=== PATIENT | male | born 1945 | race Caucasian/White ===

== ENCOUNTER 2017-12-25 06:00 | Day surgery (SDC) | payer OTHER | END 2017-12-25 10:00 | disposition home or self-care (01) | LOC: AMB-ENDOS 06:00 | DX: D12.0 Benign neoplasm of cecum (principal); D12.3 Benign neoplasm of transverse colon; D12.5 Benign neoplasm of sigmoid colon; K64.8 Other hemorrhoids; K57.30 Diverticulosis of large intestine without perforation or abscess without bleeding; Z12.11 Encounter for screening for malignant neoplasm of colon ==

== ENCOUNTER 2020-03-24 14:49 | Outpatient (CLI) | payer OTHER | END 2020-03-24 14:52 | disposition HB | LOC: RAD 14:49 | PROVIDERS: ATTEND Family Medicine | DX: R07.89 Other chest pain (principal) ==

== ENCOUNTER 2020-03-30 14:07 | Outpatient (CLI) | payer OTHER | END 2020-03-30 14:15 | disposition HB | LOC: RAD 14:07 | PROVIDERS: ATTEND Family Medicine | DX: J12.89 Other viral pneumonia (principal); J18.0 Bronchopneumonia, unspecified organism ==